=== PATIENT | male | born 1950 | race Caucasian/White ===

== ENCOUNTER 2018-12-08 10:29 | Emergency (ER) | payer OTHER ==
[~2018-12-08] VITALS: Ht 177.8 cm; Wt 108.9 kg
[~2018-12-08 10:29] MED LIST: PROTONIX40 MG PO
[2018-12-08] MEDS ORDERED: VASOTEC10 MG (10:55)
== END 2018-12-08 15:52 | disposition home or self-care (01) ==
LOC: ER 10:29
DX: M54.5 Low back pain (principal); M54.6 Pain in thoracic spine

== ENCOUNTER 2022-09-28 12:39 | Outpatient (CLI) | payer OTHER ==
[~2022-09-28 12:39] MED LIST changes: +VASOTEC10 MG
== END 2022-09-28 12:42 | disposition home or self-care (01) ==
LOC: SONOGRAMA 12:39
DX: N20.0 Calculus of kidney (principal)

== ENCOUNTER 2022-09-28 13:11 | Outpatient (CLI) | payer OTHER | END 2022-09-28 13:13 | disposition home or self-care (01) | LOC: LAB 13:11 | DX: N39.0 Urinary tract infection, site not specified (principal) ==